=== PATIENT | female | born 1990 | race Two or more races ===

== ENCOUNTER 2016-12-16 16:15 | Emergency (ER) | payer MEDICAID ==
[~2016-12-16] VITALS: Ht 172.7 cm; Wt 132.9 kg
[2016-12-16 17:42] LABS: Basophils # (auto) 0.1 uL; Basophils % (auto) 0.8 % (0.0-2.0); Lymphocytes # (auto) 1.9 uL; Monocytes # (auto) 0.6 uL; White Blood Cell 8.8 10^3/uL (4.4-10.8)
[2016-12-16 17:44] LABS: Eosinophils # (auto) 0.3 uL; Eosinophils % (auto) 3.1 % (0.0-7.0); Hemoglobin 13.3 g/dL (12.2-16.2); Lymphocytes % (auto) 21.5 % (10.0-50.0); Mean Corpuscular Hemoglobin 28.4 pg (28.0-32.0); Mean Corpuscular Hgb Conc. 33.2 g/dL (32.0-36.0); Mean Corpuscular Volume 85.5 fL (80.0-100.0); Monocytes % (auto) 6.6 % (0.0-12.0); Platelet Count (auto) 479 10^3/uL (140-450); Red Blood Cells 4.68 10^6/uL (4.0-5.20); Red Cell Distribution Width 16.2 % (11.8-14.3)
[2016-12-16 18:05] LABS: Albumin 3.3 g/dL (3.4-5.0); BUN/Creatinine Ratio 13.8; Bilirubin, Total 0.3 mg/dL (0.2-1.0); Calcium 9.3 mg/dL (8.5-10.1); Potassium 3.5 mmol/L (3.5-5.1); Total Protein 7.7 g/dL (6.4-8.2)
[2016-12-17] MEDS ORDERED: HYDROcodone-ACET 5/325MG TAB PO ONE (00:15)
[2016-12-17] MEDS ORDERED: IBUPROFEN 800 MG TAB PO ONE (00:15)
[2016-12-17 00:29] VITALS: BP 132/84
== END 2016-12-17 00:30 | disposition home or self-care (01) ==
LOC: ER 16:15
DX: M41.9 Scoliosis, unspecified (principal); R10.9 Unspecified abdominal pain; Z90.49 Acquired absence of other specified parts of digestive tract
CPT/HCPCS: 36415; 72128; 74176; 80053; 83690; 85025